=== PATIENT | male | born 1970 | race Two or more races ===

== ENCOUNTER 2025-10-17 08:15 | Day surgery (SDC) | payer MEDICAID ==
[2025-10-17] VITALS (9 sets, daily range): BP systolic 104–130; BP diastolic 68–82; PULSE 67–75; RESP 10–19; TEMP 97.7; O2SAT 92–96
[~2025-10-17] VITALS: Ht 165.1 cm; Wt 108.9 kg
[~2025-10-17 08:15] MED LIST: ASPI-543 PO; ATOR20TA50 PO; CHOL20007 PO; ENAL1TAB42 PO; METF-370 PO
[2025-10-17] MEDS ORDERED: IODIXANOL 320MG/ML 100ML BTL IV ONE (09:27)
[2025-10-17] MEDS ORDERED: ANGIOMAX 250 MG VIAL IV ONE (09:28)
[2025-10-17] MEDS ORDERED: LIDOCAINE 2%HCL (LOCAL ANESTH.) INJ 20ML MDV ONE (09:29)
[2025-10-17] MEDS ORDERED: SODIUM CHL 0.9% 0 ML ONE (09:29)
[2025-10-17] MEDS ORDERED: VERAPAMIL 2.5MG/ML INJ 2ML VIAL IV ONE (09:29)
[2025-10-17] MEDS ORDERED: fentaNYL CITRATE 100 MCG/2 ML VL ONE (09:29)
[2025-10-17] MEDS ORDERED: MIDAZOLAM HCL 2MG/2ML 2ml VIAL (1mg/ml) ONE (09:29)
[2025-10-17] MEDS ORDERED: HEPARIN SODIUM (PORCINE) 5000 UNITS/ML 1ML VIAL ONE (09:29)
--- NOTE | 2025-10-17 10:11 | DVHOP2 ---
Operative Report Operative Report CARDIAC SUPPLIER QUALITY PROCEDURE REPORT [place], [place] Date of Service: 10/17/25 [employer] Worker: Matt Rios MD PROCEDURES PERFORMED: Coronary angiogram, left heart catheterization, conscious sedation administration and supervision, less than 15 minutes; fluoroscopy use and interpretation. PREOPERATIVE DIAGNOSES: Abnormal stress test with CCS class 3 angina, POSTOP DIAGNOSIS: mild cad DESCRIPTION OF PROCEDURE: The patient or appropriate family signed informed consent understanding the risks, benefits and alternatives of the procedure, they wished to proceed. The patient was [place] cardiac labor [place] The patient was prepped in a sterile fashion. Sedation was used per cardiac cath protocol. I administered 2 mL of 2% lidocaine to the right wrist. With an antegrade front wall puncture. I cannulated the right radial artery and placed a 6-[place] Glidesheath slender. Next, an intra-arterial spasmolytic was administered. Next, a - 6French Amorita catheter and JL3.5 and pigtail de and were used for coronary angiogram and LVEDP measurement and pressure pullback. At the completion of procedure, all guides and wires were removed, and there were no immediate complications. FINDINGS: RCA: Moderate vessel off the right sinus of Valsalva, there is no severe flow limiting stenosis. LEFT MAIN: Moderate size left main, it bifurcates into LAD and circumflex. no stenosis. CIRCUMFLEX: Moderate caliber vessel coming off the left main with no flow limiting stenosis. mid CX with 30% stenosis LAD: LAD is a moderate caliber vessel coming of the left main. mild LAD is 30- 40% stenosis. distal LAD is patent LVEDP of 14 mmhg CONCLUSIONS: 1. mild CAD PLAN: Aggressive risk factor modification and medical management for the patient. MATT RIOS MD Oct 17, 2025 10:11
== END 2025-10-17 13:03 | disposition home or self-care (01) ==
LOC: CATH 08:15
PROVIDERS: ATTEND Internal Medicine
DX: R07.9 Chest pain, unspecified (principal); I25.118 Atherosclerotic heart disease of native coronary artery with other forms of angina pectoris; R94.39 Abnormal result of other cardiovascular function study; R06.02 Shortness of breath; E11.9 Type 2 diabetes mellitus without complications; Z79.82 Long term (current) use of aspirin; Z79.899 Other long term (current) drug therapy
CPT/HCPCS: 93458; C1769; C1894; J1644; J2250; J3010; J7030; Q9967; 99152